=== PATIENT | female | born 1960 | race Asian ===

== ENCOUNTER 2018-01-19 23:22 | Emergency (ER) | payer SELFPAY ==
[~2018-01-19] VITALS: Ht 167.6 cm; Wt 95.5 kg
[2018-01-19] MEDS ORDERED: ERGO500014 PO (23:56)
[2018-01-19] MEDS ORDERED: AMLO-512 PO (23:56)
[2018-01-19] MEDS ORDERED: ATOR10TA84 PO (23:56)
[2018-01-19] MEDS ORDERED: HYDR-2924 PO (23:56)
[2018-01-19] MEDS ORDERED: CLON-570 PO (23:56)
[2018-01-19] MEDS ORDERED: VALS160T2 PO (23:56)
[2018-01-19] MEDS ORDERED: CHL25 PO (23:56)
[2018-01-19] MEDS ORDERED: METO25XL PO (23:56)
[2018-01-20 01:33] VITALS: BP 145/85
== END 2018-01-20 02:28 | disposition left against medical advice (07) ==
LOC: EMS 23:23
DX: R05 Cough (principal); R51 Headache; H57.12 Ocular pain, left eye; Z53.21 Procedure and treatment not carried out due to patient leaving prior to being seen by health care provider
CPT/HCPCS: 99281

== ENCOUNTER 2020-06-19 19:26 | Emergency (ER) | payer SELFPAY ==
[~2020-06-19] VITALS: Ht 162.6 cm; Wt 88.0 kg
[~2020-06-19 19:26] MED LIST: AMLO-258 PO; ATOR10TA84 PO; CHL25 PO; CLON0.1T83 PO; ERGO500014 PO; HYDR-2924 PO; METO25XL PO; VALS160T2 PO
[2020-06-19 19:38] VITALS: BP 179/93
[2020-06-19] MEDS ORDERED: ACETAMINOPHEN 500 MG TABLET PO ONE (20:15)
== END 2020-06-19 20:55 | disposition left against medical advice (07) ==
LOC: EMS 19:30
DX: R05 Cough (principal); Z53.21 Procedure and treatment not carried out due to patient leaving prior to being seen by health care provider

== ENCOUNTER 2025-02-09 11:29 | Emergency (ER) | payer OTHER ==
[~2025-02-09] VITALS: Ht 162.6 cm; Wt 90.9 kg
[~2025-02-09 11:29] MED LIST changes: +ATOR10TA PO; -ATOR10TA84 PO; +CLON0.1T2 PO; -CLON0.1T83 PO; -HYDR-2924 PO; +HYDR50TA36 PO
[2025-02-09 11:31] VITALS: TEMP 97.7
[2025-02-09] MEDS ORDERED: HYDR50TA37 PO (11:34)
[2025-02-09] MEDS ORDERED: AMLO10TA55 PO (11:34)
[2025-02-09] MEDS ORDERED: ATOR40TA71 PO (11:34)
[2025-02-09] MEDS ORDERED: METO-391 PO (11:34)
[2025-02-09] MEDS ORDERED: ASPI-1444 PO (11:34)
[2025-02-09] MEDS ORDERED: HYDR25TA PO (11:34)
[2025-02-09 11:41] LABS: COVID AG,FIA SOURCE NASAL SWAB
[2025-02-09 12:01] LABS: PLATELET COUNT (AUTO) 208 K/uL (150-450); RED BLOOD CELL COUNT(AUTO) 5.12 MIL/uL (4.00-5.20); RED CELL DISTRIBUTION WIDTH 13.5 % (11.5-14.5); WHITE BLOOD COUNT (AUTO) 5.3 K/uL (4.5-11.0)
[2025-02-09 12:10] LABS: CALCIUM, TOTAL 9.6 mg/dL (8.8-10.5); CREATININE 0.67 mg/dL (0.60-1.30); GLOMERULAR FILTR. RATE CALC > 60 mL/min (>60); GLUCOSE,RANDOM 97 mg/dL (70-110); SODIUM SERUM 142 mmol/L (136-145); UREA NITROGEN, BLOOD 13 mg/dL (7-18)
[2025-02-09 12:11] LABS: INFLUENZA TYPE A NEGATIVE FOR TYPE A (NEGATIVE); INFLUENZA TYPE B NEGATIVE FOR TYPE B (NEGATIVE); SARS-COV2 (COVID) ANTIGEN,FIA Negative (Negative)
[2025-02-09 12:18] LABS: TROPONIN I-HIGH SENSITIVITY 9 ng/L (<51)
[2025-02-09] MEDS: ACETAMINOPHEN 500 MG TABLET PO ONE (12:25)
[2025-02-09] MEDS: METOCLOPRAMIDE HCL 5 MG/ML 2 ML VIAL IVP ONE (13:44)
[2025-02-09] MEDS: SODIUM CHLORIDE 0.9% 1,000 ML IV ONE (13:44)
[2025-02-09] MEDS: ONDANSETRON 4 MG TABLET PO ONE (14:01)
[2025-02-09 14:35] LABS: APPEARANCE,URINE CLEAR (CLEAR); GLUCOSE, URINE (UA) NEGATIVE (NEGATIVE); LEUKOCYTE ESTERASE ,URINE LARGE (NEGATIVE); NITRATE,URINE NEGATIVE (NEGATIVE); OCCULT BLOOD,URINE NEGATIVE (NEGATIVE); SPECIFIC GRAVITIY, URINE 1.016 (1.003-1.030)
[2025-02-09 14:46] LABS: SQUAMOUS EPITHELIAL CELL,UR Few /LPF (None Seen)
[2025-02-09 15:21] VITALS: BP 135/70; PULSE 60; RESP 18; O2SAT 95
[2025-02-09] MEDS: CEPHALEXIN MONOHYDRATE 500 MG CAPSULE PO ONE (16:20)
[2025-02-09] MEDS ORDERED: CEPH-558 PO (16:22)
== END 2025-02-09 16:40 | disposition home or self-care (01) ==
LOC: EMS 11:29
DX: R19.7 Diarrhea, unspecified (principal); N39.0 Urinary tract infection, site not specified; I10 Essential (primary) hypertension; E78.00 Pure hypercholesterolemia, unspecified; Z90.49 Acquired absence of other specified parts of digestive tract; Z90.710 Acquired absence of both cervix and uterus; Z79.82 Long term (current) use of aspirin; Z79.899 Other long term (current) drug therapy; Z20.822 Contact with and (suspected) exposure to COVID-19
CPT/HCPCS: 99285; 70450; 71045; 87426; 80048; 81001; 83880; 84484; 85025; 87086; 87804; 36415; 93005; Q0162